=== PATIENT | female | born 1990 | race Caucasian/White ===

== ENCOUNTER 2016-10-12 22:10 | Emergency (ER) | payer SELFPAY ==
[~2016-10-12] VITALS: Ht 162.5 cm; Wt 67.1 kg
[~2016-10-12 22:10] MED LIST: AMOXICILLIN500 M1 PO; AMOXICILLIN500 M2 PO; AMOXICILLIN500 MG PO; AMOXIL500 MG PO; ANAPROX DS550 MG PO; ATIVAN1 MG PO; AUGMENTIN 875 M1 TAB PO; BACTRIM DS 8001 TA1 PO; CEPHALEXIN500 M1 PO; CIPRO500 MG PO; CLARITIN10 MG PO; KEFLEX500 MG PO; MOTRIN600 MG PO; Motrin,Rufen800 MG PO; NKHM; NORCO 5-325 TA1 EACH PO; PEPCID20 MG PO; PHENERGAN W/DM120 ML PO; PHENERGAN25 M1 PO; POLYTRIM 1000010 ML OPH; PRENATAL1 TA7 PO; SEPTRA DS 800 M1 TAB PO; TESSALON PERLE200 MG PO; TRAMADOL HCL50 MG PO; VICODIN 5/500 505 MG PO; WYMOX500 MG PO; ZANTAC150 MG PO; ZOFRAN ODT4 MG SL; ZOFRAN4 MG PO; ZOLOFT100 MG PO; Zofran4 MG PO
[2016-10-12 22:21] VITALS: BP 140/81
[2016-10-12] MEDS ORDERED: PREDNISONE10 MG PO (22:57)
[2016-10-12] MEDS ORDERED: PROAIR HFA8.5 GM INH (22:57)
[2016-10-12] MEDS ORDERED: NAPROSYN500 MG PO (22:58)
== END 2016-10-12 23:30 | disposition home or self-care (01) ==
LOC: ED 22:10
DX: J40 Bronchitis, not specified as acute or chronic (principal); F17.200 Nicotine dependence, unspecified, uncomplicated; Z98.890 Other specified postprocedural states; Z90.49 Acquired absence of other specified parts of digestive tract; Z88.1 Allergy status to other antibiotic agents

== ENCOUNTER → 2020-01-15 | Outpatient (CLI) | payer SELFPAY ==
[~2020-01-15] MED LIST changes: +NAPROSYN500 MG PO; +PREDNISONE10 MG PO; +PROAIR HFA8.5 GM INH
[2020-01-16 07:10] LABS: HEPATITIS B SURFACE AB Non Reactive (.)
[2020-01-16 17:10] LABS: MUMPS ANTIBODIES, IGG >300.0 AU/mL (Immune >10.9); VARICELLA-ZOSTER IGG >4000 index (Immune >165)
== END ==
LOC: LAB 16:08
PROVIDERS: ATTEND Internal Medicine
DX: Z01.84 Encounter for antibody response examination (principal); R76.0 Raised antibody titer; Z13.220 Encounter for screening for lipoid disorders; Z11.59 Encounter for screening for other viral diseases; Z11.8 Encounter for screening for other infectious and parasitic diseases